=== PATIENT | female | born 2005 | race Caucasian/White ===

== ENCOUNTER 2023-02-20 14:08 | Inpatient (IN) | payer MEDICAID, SELFPAY ==
[2023-02-20] VITALS (16 sets, daily range): BP systolic 105–129; BP diastolic 53–72; PULSE 87–123; TEMP 36.7–37.2; O2SAT 98–100; BMI 27.1
[2023-02-20] MEDS: Lactated Ringers 1,000 ML 50 ML IV (14:20)
--- NOTE | 2023-02-20 14:39 | PCM.HP.BLA ---
History and Physical Date of Admission: 02/20/23 HPI: 17 yo at 40/2w ED 02/18/23 admitted in labor. Contractions started around 5 AM. Denies leaking of fluid, vaginal bleeding. Reports movement. Denies headache or vision changes, chest pain or shortness of breath, nausea or vomiting, diarrhea constipation, fevers or chills. 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 States that she had a CBC earlier last week noted a hemoglobin of around 9.5 at which time her new car inspector stated that she would not be eligible for a home . They decided that they would wait until she was in labor to decide which hospital to go to. States that she has had a couple of ultrasounds in this . She did not have any glucose screening: No Glucola or no home glucose monitoring. She has not had a group beta strep swab. This was complicated by an admission around 30 weeks for pyelonephritis (at [facility]). Short interval , last delivery was in summer 2021. 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 Inguinal hernia repair as a child Medications: Holistic supplements Allergies: 1. Penicillin caused a rash. No shortness of breath or laryngeal/tongue edema Family history: Patient is adopted, history is unknown Social history: Denies tobacco, alcohol, drug use Review of system: Negative otherwise stated above Physical exam: Blood pressure 129/72, pulse 88, temp 98.3 ?F, oxygen saturation 98% on room air General: Breathing through contractions, no acute distress HEENT: Normal cephalic/atraumatic, PERRLA Cardiorespiratory: No increased effort Abdomen: Soft, nontender, gravid Extremities: No edema Neurologic: Cranial nerves II through XII grossly intact, no focal deficits Musculoskeletal: Moves all extremities equally Cervical exam: 8 cm per RN heart rate: 135/mod sandy/+accel/no decel [place]: q3-4 min Assessment/Plan: 17 yo at 40/2w ED 02/18/23 admitted in labor. complicated by: pyelonephritis around 30 weeks, short interval . -Admit for labor -Discussed GBS prophylaxis. Discussed that as she is GBS unknown, would recommend this (also did not have testing in her last ). GBS is a normal bacteria that lives in the vaginal/rectal region of about one third of women. During labor it is recommended to treat to reduce the risk of transmission to baby. Babies infected with GBS may develop: meningitis, sepsis, pneumonia and require NICU stay. Patient agrees to [facility] for GBS prophylaxis and a GBS swab. -Routine labs -Declines epidural -Has not had glucose screening in
[2023-02-20] MEDS: Cefazolin 2 GM in 0.9% Normal Saline 100 ML IV (14:50)
[2023-02-20 15:03] LABS: Absolute Neutrophil Count 10.4 X10^3/uL (2.0-7.7); Basophil# 0.04 X10^3/uL; Basophil% 0.3 % (0-1); Eosinophil# 0.01 X10^3/uL; Eosinophils% 0.1 % (0-5); Hematocrit 30.8 % (37-47); Hemoglobin 9.3 g/dL (12.0-15.0); Lymphocyte % 14.2 % (19-41); Mean Corp Hgb Conc 30.2 g/dL (32-36); Mean Corpuscular Hgb 24.5 pg (27.0-32.0); Mean Corpuscular Volume 81.3 fL (81-99); Mean Platelet Vol. 11.3 fl (6.2-12.0); Monocyte# 0.84 X10^3/uL; Monocyte% 6.3 % (0-10); NRBC Flagged by Analyzer 0.2 % (0-5); Neutrophil # 10.39 X10^3/uL (2.7-7.7); Neutrophil % 77.4 % (47-70); Platelet Count 283 K/mm3 (150-450); RBC Distribution Width SD 50.6 fl (35.1-43.9); Red Blood Count 3.79 M/mm3 (4.2-5.4); White Blood Count 13.4 K/mm3 (4.4-11.0)
[2023-02-20 17:09] LABS: Rubella IgG Reactive (Nonreactive); Syphilis Antibodies Non-reactive
[2023-02-20 17:43] LABS: Group B Strep DNA By PCR Negative (Negative); Internal Control PASS; Probe Check PASS; Specimen Processing Control PASS
[2023-02-20 17:47] LABS: HIV - WCH Non-Reactive (Nonreactive); Hepatitis B Surface Antigen Non-Reactive (Nonreactive); Hepatitis C Antibody Non-Reactive (Nonreactive); Syphilis Antibodies Non-reactive
[2023-02-20] MEDS: Oxytocin 15 Units/NS 250ml 15 UNITS/250 ML IV.SOLN 83 UNITS IV (18:00)
[2023-02-20] MEDS: Lidocaine 1% (20 ml mdv) 20 ML Vial INFILT (18:04)
[2023-02-20] MEDS: Oxytocin 10 UNITS/ML Vial IM (18:05)
--- NOTE | 2023-02-20 18:23 | OP.PCM_ITS ---
Maternal Data Information Final DE: 02/18/23 Vaginal Delivery Operative Information Date of Procedure: 02/20/23 Pre-Operative Diagnosis: Razo intrauterine Post-Operative Diagnosis: Razo intrauterine , shoulder dystocia Surgery / Procedure Performed: Spontaneous Vaginal Delivery Type of Anesthesia: None Estimated Blood Loss: 400cc Findings Description of Procedure: Patient pushing on hands and knees, head delivered. Shoulder dystocia d iagnosed. Patient moved to her back. Placed in Jada position. Suprapubic pressure given towards maternal right. Shoulder dystocia relieved with delivery of posterior arm. No nuchal cord. From delivery of head to delivery of baby, approximately 60 seconds. From diagnosis of shoulder dystocia: approximately 30 seconds. Baby to mom. Cord clamped and cut, baby to warmer for assessment. A ssessed by press service reader. Spontaneous delivery of placenta. First-degree laceration noted. Lidocaine injected. Repaired in the usual fashion, hemostatic. Baby assessed by press service reader: Per Dr. Wilcox, no deficits on exam. See his documentation for further detail. Cord gases. Discussed diagnosis of shoulder dystocia with patient, her , mother. During discussion emphasized need to disclose this with her future service order dispatcher or physician provider at time of next as well as time of labor and delivery. Discussed increased risk of this occurring again. At that time patient disclosed that her first baby did also get stuck. Cord blood ABG pH 7.21, base excess -7 Infant A Gender: Female (1 minute): 7 (5 minute): 9
--- NOTE | 2023-02-20 22:00 | NURSING ---
Report received from Karen ANTHONY, taking over pt care at this time.
[2023-02-21] VITALS (12 sets, daily range): BP systolic 95–117; BP diastolic 53–70; PULSE 75–93; RESP 14–18; TEMP 36.2–36.6; O2SAT 96–99
--- NOTE | 2023-02-21 04:17 | NURSING ---
Report given to Purnima ANTHONY, taking over pt and infant care at this time.
--- NOTE | 2023-02-21 10:01 | PCM.PN.OB ---
Subjective Subjective Patient doing well. Lochia minimal. Breast-feeding. Objective Data Objective Data Vital Signs: Vital Signs Temp Pulse Resp BP Pulse Ox O2 Del Method 97.5 F L 83 16 110/68 98 Room Air 02/21/23 08:37 02/21/23 08:37 02/21/23 08:35 02/21/23 08:37 02/21/23 08:35 02/21/23 08:35 Oxygen Delivery Method Room Air Weight: 65.2 kg Body Mass Index (BMI) 27.1 Intake & Output: Intake and Output for Last 24 Hours 02/19/23 02/20/23 02/21/23 23:59 23:59 23:59 Intake Total 539.17 / 539.17 Output Total 400 / 400 Balance 139.17 / 139.17 Lab / Micro Data Attestation: I reviewed the patient's lab results. Result Diagrams: 02/20/23 14:25 Labs: Laboratory Results - last 24 hr 02/20/23 14:25: WBC 13.4 H, RBC 3.79 L, Hgb 9.3 L, Hct 30.8 L, MCV 81.3, MCH 24.5 L, MCHC 30.2 L, RDW Std Deviation 50.6 H, RDW Coeff of Michelle 18.0 H, Plt Count 283, MPV 11.3, Immature Gran % (Auto) 1.700 H, Neut % (Auto) 77.4 H, Lymph % (Auto) 14.2 L, [place] % (Auto) 6.3, Eos % (Auto) 0.1, Baso % (Auto) 0.3, Absolute Neuts (auto) 10.4 H, Absolute Lymphs (auto) 1.90, Nucleated RBC % 0.2 02/20/23 14:25: Syphilis Total Ab Non-reactive, Rubella IgG Antibody Reactive 02/20/23 14:25: Blood Type B POSITIVE, Antibody Screen NEGATIVE 02/20/23 14:25: Syphilis Total Ab Non-reactive, Hep Bs Antigen Non-Reactive, Hepatitis C Antibody Non-Reactive, HIV 1&2 Antibody Non-Reactive 02/20/23 15:35: Group B Strep DNA Negative, Specimen Comment Not Reportable Physical Exam Const alert, oriented x3 and no apparent distress HEENT normocephalic Head and Scalp: atraumatic Neck full ROM Resp normal respiratory effort Cardio regular rate GI normal to inspection, nondistended, normoactive bowel sounds GI Narrative: Uterus 2 cm below umbilicus Back/Spine normal ROM Extremity normal to inspection Extremity Narrative: Minimal pedal edema Neuro no focal motor deficits and no sensory deficits noted Psych mental status grossly normal and affect normal Assessment & Plan (1) Vaginal delivery: PLAN: day 1 status post . Complicated by shoulder dystocia. Baby doing well without any issues or concerns. Breast-feeding. Reviewed labor and delivery again. All questions answered. Patient had been seeing player services representative. Discussed follow-up in our office. Discharge home today. (2) Shoulder dystocia, delivered:
--- NOTE | 2023-02-21 10:02 | DCINST_ITS ---
Discharge Instructions Diet Discharge Diet: No restrictions Activity Discharge Activity: Return to Normal Activity and May Shower May resume sexual activity in: 4-6 weeks Weight Bearing Status: Weight bearing as tolerated Lifting Restrictions: No greater than 25 pounds Dressing / Incision Call your doctor if you observe: Fever of 101 or Higher, Change in Color, Inability to urinate, Using more than 1 pad per hour, Shortness of breath, Dizziness, Swelling in the ankles, Chest pain and Calf discomfort Follow Up Care Please Follow Up With: Nola Nascimento DO When: 6-week visit Test Results: Test results from this visit will be discussed in further detail at your follow- up appointment, if applicable. Discharge Plan Admission Admit Date/Time: 02/20/23 14:08 Primary Reason for Your Visit: Vaginal delivery Attending Provider: Nola Nascimento Primary Care Provider: Care PhysicianKatiana Primary Discharge Orders/Prescriptions Prescriptions: No Action ferrous sulfate [Iron (ferrous sulfate)] 325 mg (65 mg iron) Tablet 325 mg PO BID Prena-Tab 65 mg iron- 1 mg Tablet 1 tab PO DAILY Referrals / Follow Up: Care Physician,Katiana Primary [Primary Care Provider] - Disposition Disposition (needs filled in before D/C Order can be placed): Home, Self Care
== END 2023-02-21 18:15 | disposition home or self-care (01) | DRG 560 ==
LOC: WPOUT 14:13 → WP 14:13
PROVIDERS: Admitting Provider Student in an Organized Health Care Education/Training Program; Visit Provider Student in an Organized Health Care Education/Training Program
DX: O66.0 Obstructed labor due to shoulder dystocia (principal); Z37.0 Single live birth; O70.0 First degree perineal laceration during delivery; Z3A.40 40 weeks gestation of pregnancy
CPT/HCPCS: 59025; 59050; 85025; 86703; 86762; 86780; 86803; 86850; 86900; 86901; 87081; 87340; 87653; 99221; J7120; G0378